=== PATIENT | male | born 1955 | race Caucasian/White ===

== ENCOUNTER → 2017-12-27 | Outpatient (CLI) | payer OTHER ==
[2017-12-27 14:07] LABS: INR 2.3 (<1.2); Partial Thromboplastin Time 28.6 sec (22.0-30.0); Prothrombin Time 20.5 sec (9.0-12.0)
[2017-12-27 14:19] LABS: ALT 24 U/L (21-72); AST 21 U/L (17-59); Albumin 3.7 g/dL (3.5-5.0); Alkaline Phosphatase 68 U/L (38-126); Anion Gap 9 mmol/L; Blood Urea Nitrogen 17 mg/dL (9-20); Calcium 9.4 mg/dL (8.4-10.2); Carbon Dioxide 29 mmol/L (22-30); Chloride 102 mmol/L (98-107); Glucose 99 mg/dL (74-99); Potassium 4.9 mmol/L (3.5-5.1); Sodium 140 mmol/L (137-145); Total Protein 6.5 g/dL (6.3-8.2)
[2017-12-27 14:26] LABS: Anisocytosis Slight; HCT 43.8 % (39.0-53.0); MCV 81.2 fL (80.0-100.0); Mean Platelet Volume 9.1; Microcytosis Slight; Platelet Count 192 k/uL (150-450); RBC 5.39 m/uL (4.30-5.90); RDW 19.2 % (11.5-15.5); WBC 6.4 k/uL (3.8-10.6)
[2017-12-27 14:29] LABS: Appearance,Urine Clear (Clear); Bilirubin,Urine Negative (Negative); Blood,Urine Negative (Negative); Color,Urine Yellow; Glucose,Urine (UA) Negative (Negative); Ketones,Urine Negative (Negative); Leukocyte Esterase,Urine Negative (Negative); Nitrite,Urine Negative (Negative); Protein,Urine Trace (Negative); Specific Gravity,Urine 1.014 (1.001-1.035); Urobilinogen,Urine <2.0 mg/dL (<2.0)
== END | disposition home or self-care (01) ==
LOC: LABPAT 13:00
PROVIDERS: ATTEND Orthopaedic Surgery Sports Medicine
DX: Z01.812 Encounter for preprocedural laboratory examination (principal)
CPT/HCPCS: 80053; 81003; 85027; 85610; 85730; 87070

== ENCOUNTER → 2018-01-19 | Outpatient (CLI) | payer OTHER ==
[2018-01-19 14:11] LABS: Anisocytosis Slight; HCT 43.2 % (39.0-53.0); HGB 14.3 gm/dL (13.0-17.5); MCH 27.2 pg (25.0-35.0); MCHC 33.2 g/dL (31.0-37.0); MCV 82.1 fL (80.0-100.0); Mean Platelet Volume 9.3; Microcytosis Slight; Platelet Count 158 k/uL (150-450); RBC 5.26 m/uL (4.30-5.90); RDW 17.5 % (11.5-15.5); WBC 6.7 k/uL (3.8-10.6)
[2018-01-19 14:16] LABS: ALT 17 U/L (21-72); AST 23 U/L (17-59); Albumin 3.9 g/dL (3.5-5.0); Alkaline Phosphatase 65 U/L (38-126); Anion Gap 12 mmol/L; Blood Urea Nitrogen 17 mg/dL (9-20); Calcium 9.3 mg/dL (8.4-10.2); Carbon Dioxide 24 mmol/L (22-30); Chloride 108 mmol/L (98-107); Glucose 98 mg/dL (74-99); INR 1.7 (<1.2); Partial Thromboplastin Time 25.8 sec (22.0-30.0); Potassium 4.4 mmol/L (3.5-5.1); Prothrombin Time 15.9 sec (9.0-12.0); Sodium 144 mmol/L (137-145); Total Bilirubin 0.6 mg/dL (0.2-1.3); Total Protein 6.5 g/dL (6.3-8.2)
[2018-01-19 14:20] LABS: Appearance,Urine Cloudy (Clear); Bilirubin,Urine 1+ (Negative); Blood,Urine Negative (Negative); Color,Urine Dark Yellow; Glucose,Urine (UA) Negative (Negative); Ketones,Urine Trace (Negative); Leukocyte Esterase,Urine Negative (Negative); Mucus,Urine Many /hpf; Nitrite,Urine Negative (Negative); Protein,Urine 1+ (Negative); Specific Gravity,Urine 1.027 (1.001-1.035); Squamous Epithelial Cell,Urine 11 /hpf (0-4); WBC,Urine 3 /hpf (0-5)
== END | disposition home or self-care (01) ==
LOC: LABPAT 13:28
PROVIDERS: ATTEND Orthopaedic Surgery Sports Medicine
DX: Z01.812 Encounter for preprocedural laboratory examination (principal); M17.12 Unilateral primary osteoarthritis, left knee
CPT/HCPCS: 80053; 81001; 85027; 85610; 85730

== ENCOUNTER 2018-02-03 12:33 | Inpatient (IN) | payer OTHER ==
[2018-01-25 14:47] VITALS: BMI 46.2
[~2018-02-03 12:33] MED LIST: ACETAMINOPHEN TAB 500 MG TAB PO ONE; DEXAMETHASONE SOD PHOSPHATE 10 MG/ML 1 ML VIAL IV ONE; LIDOCAINE 1% 20 ML VIAL (10MG/ML) FOR IV START INTRADERMA PRN; MELOXICAM 7.5 MG TAB PO ONE; MIDAZOLAM 2 MG/2 ML VIAL IV PRN; MORPHINE SULFATE 4 MG/ML SYRINGE IV PRN; ONDANSETRON 4 MG/2 ML VIAL IVP ONE; ROPIVACAINE 246.25 MG, EPINEPHrine 0.5 MG, KETOROLAC 30 MG, cloNIDine HCL/PF 80 MCG, WA... MISCELLANE ONE; TRANEXAMIC ACID 1,000 MG in SODIUM CHLORIDE 0.9% 50 ML IVPB ONE
[2018-02-03] MEDS: LACTATED RINGERS 1,000 ML IV SCH ×3 (13:42→23:49)
[2018-02-03 14:22] LABS: INR 1.2 (<1.2); Prothrombin Time 11.3 sec (9.0-12.0)
[2018-02-03] MEDS ORDERED: PROPOFOL 10 MG/ML 20 ML VIAL IV ONE (15:01)
[2018-02-03] MEDS ORDERED: SODIUM CHLORIDE 0.9% 100 ML BAG ONE (15:01)
[2018-02-03] MEDS ORDERED: PHENYLEPHRINE-0.9% NACL SYG 1 MG/10 ML SYRINGE ONE (15:01)
[2018-02-03] MEDS ORDERED: TRANEXAMIC ACID 1,000 MG/10 ML VIAL ONE (15:01)
[2018-02-03] MEDS ORDERED: fentaNYL (PF) 50 MCG/ML 2 ML AMP ONE (15:01)
[2018-02-03] MEDS ORDERED: MIDAZOLAM 2 MG/2 ML VIAL ONE (15:01)
[2018-02-03] MEDS ORDERED: LIDOCAINE 1% INJ 10MG/ML (20 ML MDV) ONE (15:01)
[2018-02-03] MEDS ORDERED: traMADol 50 MG TAB PO PRN (15:16)
[2018-02-03] MEDS ORDERED: ACETAMINOPHEN TAB 325 MG TAB PO PRN (15:16)
[2018-02-03] MEDS ORDERED: ONDANSETRON 4 MG/2 ML VIAL IVP PRN (15:16)
[2018-02-03] MEDS ORDERED: NALOXONE 0.4 MG/ML 1 ML VIAL IV PRN (15:16)
[2018-02-03] MEDS ORDERED: HYDROcodone/APAP 7.5-325MG 1 EACH TAB PO PRN ×2 (15:16)
[2018-02-03] MEDS ORDERED: MAGNESIUM HYDROXIDE 2,400 MG/10 ML CUP PO PRN (15:16)
[2018-02-03] MEDS ORDERED: BISACODYL 10 MG SUPP RECTAL PRN (15:16)
[2018-02-03] MEDS ORDERED: HYDROmorphone 0.5 MG/0.5 ML SYRINGE IVP PRN ×3 (15:16)
[2018-02-03] MEDS ORDERED: DIAZEPAM 5 MG TAB PO PRN (15:16)
[2018-02-03] MEDS ORDERED: NA PHOS,M-B/NA PHOS,DI-BA 133 ML ENEMA RECTAL PRN (15:16)
[2018-02-03] MEDS ORDERED: TEMAZEPAM 15 MG CAP PO PRN (15:16)
[2018-02-03] MEDS ORDERED: hydrOXYzine PAMOATE 25 MG CAP PO PRN (15:16)
[2018-02-03] MEDS ORDERED: ceFAZolin 3,000 MG in SODIUM CHLORIDE 0.9% IRRIGATIO 3,000 ML IRRIGATION ONE (15:52)
[2018-02-03] MEDS ORDERED: LACTATED RINGERS 1,000 ML IV ONE (16:01)
--- NOTE | 2018-02-03 17:45 | XR ---
PROCEDURE: XR knee limited LT, 2 views DATE AND TIME: 02/03/2018 5:38 PM REFERRING PHYSICIAN: Julio Gilmore CLINICAL INDICATION: PHH, Evaluation for Postop abnormality and alignment TECHNIQUE: Department protocol. COMPARISON: None FINDINGS: The TKR appears in anatomic positioning and alignment. Postprocedural changes are noted. No unexpected findings. IMPRESSION: Postoperative 2 views.
[2018-02-03] MEDS ORDERED: WARFARIN 10 MG TAB PO ONE (18:00)
[2018-02-03] MEDS ORDERED: SENNOSIDES-DOCUSATE SODIUM 1 EACH TAB PO SCH (21:00)
[2018-02-03] MEDS ORDERED: WARFARIN 7.5 MG TAB PO SCH (22:15)
--- NOTE | 2018-02-03 22:33 | OP ---
OPERATIVE REPORT DATE OF PROCEDURE: 02/03/2018 SURGEON: Georgi Tamayo MD. BOOSTER PLANT OPERATOR: Julio LOCKE. PREOPERATIVE DIAGNOSIS: Left knee osteoarthrosis. POSTOPERATIVE DIAGNOSIS: Left knee osteoarthrosis. OPERATION: Left total knee arthroplasty. ANESTHESIA: Spinal with sedation. ESTIMATED BLOOD LOSS: 100 mL. TOURNIQUET TIME: 55 minutes @ 250 mmHg. COMPLICATIONS: None apparent. DRAINS: None. DISPOSITION: Postanesthesia Care Unit. INDICATIONS: Mr. Danielle is a very pleasant 62-year-old male with longstanding history of left knee pain. History and physical examination are consistent with advanced left knee osteoarthrosis. He has been through significant non-operative management up to this point. Further treatment options were discussed and he has decided to go forward with left total knee arthroplasty. The risks of the procedure were discussed with him in detail. These risks include but are not limited to risk of infection, nerve damage, bleeding, pain and a risk of deep vein thrombosis which could lead to fatal pulmonary embolism. There is also a risk of loosening of the implant which could require revision operation. The patient understands these risks. All of his questions were answered to his satisfaction. Appropriate informed consent was obtained. DESCRIPTION OF PROCEDURE: The patient was identified in the preoperative holding area. Surgical site was marked by both the patient and myself. He was given 3 grams of Ancef IV for prophylactic purposes. He was then transferred to the operative suite. He was placed supine on the operative table. A spinal anesthetic was then administered and dosed per the anesthesia department without apparent complications. Examination under anesthesia was then performed. The patient was 5 degrees shy of full extension. He had 95 degrees of flexion. The medial collateral ligament, lateral collateral ligament and posterior cruciate ligaments were stable. Tourniquet was then placed high on the left upper thigh, well padded in preparation for surgery. The patient's left lower extremity was then prepped and draped in the usual sterile fashion. A standard surgical pause was then undertaken to ensure that we were operating on the correct site and that appropriate preoperative antibiotics had been given. All staff in the room in agreement and we proceeded. The outlines of the patella were then marked with a surgical pen. A planned 12 cm vertical incision centered over the patella was marked with a surgical pen. Leg was then exsanguinated with an Esmarch dressing. The knee was then flexed and the tourniquet was inflated to 250 mmHg. The total tourniquet time for the procedure was 55 minutes. Incision was then made with a 10 blade scalpel. Dissection was carried down sharply to the overlying fascia. Great care was taken to minimize the skin flaps. The knee was then exposed using a standard medial parapatellar approach. A small cuff of quadriceps tendon was left for suturing. He was in a bit of varus preoperatively. A standard medial release was then made. Superficial medial collateral ligament was dissected off the bone around to the posterior aspect of the proximal tibia. The medial meniscus was then excised as well. The lateral meniscus was also released anteriorly. The leg was then externally rotated. The patella was everted. The knee was flexed. The retractors were then placed to protect the collateral ligaments. I then proceeded to remove the infrapatellar fat pad. This was excised sharply tangentially with the fibers of the patellar tendon. I then proceeded to remove the peripheral osteophytes. This was done with a rongeur. I then proceeded with the distal femoral resection. He did have a flexion contracture. A planned 11 mm resection was then done. The femoral canal was then entered in the midline of the femur approximately 10 mm anterior to the origin of the posterior cruciate ligament. The lily was then advanced down the center of the femur and placed intramedullary. Based on preoperative radiographs, the angle between the anatomic and mechanical axis of the femur was approximately 4-5 degrees. The valgus-angled distal femoral cutting guide was then set at 4 degrees for the left knee. The distal femoral cutting guide was then advanced over the intramedullary lily. This was seated firmly against the femur. I then, as mentioned, planned to take 11 mm off the distal femur. The cutting block was then secured onto the femur with pins. The jig was removed and the distal femoral cut was made through the slot of the block. The pins were then removed. The distal femoral cutting block was removed. The accuracy of the distal femoral cuts was checked with 2 flat bars. I then proceeded with femoral sizing. Posterior referencing sizing guide was held firmly against the resected distal surface of the femur. The posterior condyles were resting on the posterior plane of the guide. Sizing stylus was then placed onto the anterior femur. The size was measured to a size 12. I then assessed for femoral rotation. Plan was for 3 degrees of external rotation. Three degrees of external rotation was placed onto the jig. These holes were then marked. I then confirmed the rotation by 3 separate methods. This was done using the epicondylar axis as well as Whitesides line and posterior referencing. It was deemed that the external rotation was proper. I then went forward with placing the femoral cutting block. This was placed over the previously placed pin holes. The kinga wing was then placed onto the anterior slots to ensure that we would not notch the anterior femur with the anterior femoral cut. I then proceed with the anterior femoral cut. This was flush with the anterior cortex of the femur. The posterior cuts were then made followed by the anterior chamfer cut, then the posterior chamfer cut. The cutting block was then removed. Throughout the resection, the collateral ligaments were protected with retractors. I then placed a trial size 12 femur. It fit very nice medial to lateral and fit flush with the distal end of the femur. The drill holes were then made. I then proceeded with the tibial cut. I planned for a cruciate-retaining knee. The guide was placed and set for varus and valgus and then for slope. The height was set for an approximate 2 mm resection from the medial tibial plateau, which was the lower side. I was happy with the alignment and the amount of resection. The cutting block was then pinned to the proximal tibia. The alignment lily was removed and the proximal tibia was resected with a reciprocating saw. Again this was done with retractors protecting the collateral ligaments as well as the posterior cruciate ligament. I then proceeded to evaluate the flexion and extension gaps. A 10 mm block was placed. The flexion and extension gaps were equal. I then proceeded with resection of the very extensive posterior osteophytes. This was done using a curved osteotome. This resected the posterior osteophytes, and posterior capsule stripping was also done off the posterior aspect of the femur at this time. The osteophytes were removed. I then proceeded with resection of the patella. The thickness of the patella was measured using a caliper. The thickness was 25 mm. Next the anticipated patellar dome was taken into account. Resection was then performed and confirmed to be equal in 4 quadrants using a caliper. Approximately 14 mm of bone remained after the resection. A 35 x 9 mm standard patellar trial was then placed. The holes were drilled and the trial was then placed. I then proceeded with sizing the tibial plate. A size H tibial plate fit very nicely. I then placed the trial femur, tibial tray and the patellar button. A 10 mm trial tibial insert was placed. The components fit very nicely. He had full flexion and extension. The extension and flexion gaps were equal and stable to both varus and valgus stress. The patella tracked appropriately. The tibial tray rotation was marked with a Bovie. This was externally rotated properly. I then proceeded with tibial preparation. I first drilled the femoral holes and removed the femoral component. The tibial tray was then set for proper external rotation as well as mediolateral placement onto the tibia. It was then pinned into place. I then proceeded with punching the keel. I then decided to proceed with cementing of all of our components. The knee was thoroughly irrigated with sterile saline solution via pulse lavage. The lateral geniculate artery was identified and cauterized. All blood was removed from the bone of the tibia, femur and patella with pulse lavage. I then proceeded with cementing. Two packs of antibiotic bone cement were prepared on the back table by the surgical garment inspector. I then proceeded with cementing of the tibia first. Cement was impacted into the keel as well as deeply seated into the bone. A second coat of cement was then placed. The tibia was then impacted into place. Excess cement was removed with [place]'s and Joker's. I then proceeded with cementing of the femoral component. The femoral component was also cemented using standard technique. Excess cement was removed. A 10 mm trial insert was then placed into the knee. It was brought into full extension with a constant axial load placed until the cement had hardened. The patellar component was then cemented. This was held firmly with a compressive device until the cement had dried. When the cement had dried, the knee was taken out of extension. All excess cement was removed from around the prosthesis. I then trialed the knee with a 10 mm insert. Flexion and extension gaps were appropriate. I then trialed with a 12 mm insert. The flexion and extension gaps felt much better. The knee was stable with a 12 mm insert. It came into full extension. I decided to go forward with a 12 mm cross-linked cruciate-retaining tibial insert. Polyethylene was then placed onto the tibial tray and locked into place. The knee was reduced. The knee was again further irrigated with sterile saline solution with antibiotic added. The tourniquet was then deflated. Total tourniquet time for the procedure was 55 minutes at 250 mmHg. Final components were Olga Persona size 12 cruciate-retaining femoral component, a size H tibial tray, a 12 mm medial congruent cruciate-retaining polyethylene insert and a 35 x 9 mm patella. I then proceeded with closure. Again the knee was thoroughly irrigated. This was done with antibiotic solution. The quadriceps tendon and the medial retinaculum were reapproximated with #2 Ethibond suture. The extensor mechanism was then closed with a running #2 Quill suture. Subcutaneous tissues were then closed with 2-0 Vicryl interrupted suture. The skin was closed with a running 3-0 Quill suture. Dermabond was applied to the incision. Sterile compressive dressing was then applied. All sponge and needle counts were deemed correct prior to closure. The patient tolerated the procedure without apparent complication. He was transferred to the recovery room in stable condition. MMODL / IJN: [id number] /
[2018-02-03] MEDS: NICOTINE 14MG/24HR PATCH TRANSDERM SCH (23:50)
[2018-02-04] MEDS ORDERED: SODIUM CHLORIDE 0.9% 500 ML IV ONE (02:32)
[2018-02-04] MEDS: LACTATED RINGERS 1,000 ML IV SCH ×3 (02:47)
--- NOTE | 2018-02-04 07:15 | CONS ---
CONSULTATION DATE OF CONSULTATION: 02/03/2018 REASON FOR CONSULTATION: Medical management requested by Dr. Tamayo. CONSULTATION: This is a very pleasant 62-year-old patient of Dr. Millard who has undergone a left total knee arthroplasty. Did tolerate a clear liquid diet tonight. No nausea or vomiting. No chest pain. Chronic stable medical conditions include atrial fibrillation, hypertension, osteoarthritis, and has a permanent pacemaker. The patient smokes about half a pack a day. Does have obstructive sleep apnea, but does not use CPAP machine. Pain is well controlled. REVIEW OF SYSTEMS: CONSTITUTIONAL: None. HEENT: Snoring. RESPIRATORY: Occasionally short of breath. CARDIOVASCULAR: No chest pain. GASTROINTESTINAL: None. GENITOURINARY: None. MUSCULOSKELETAL: Arthritic pain in different joints. DERMATOLOGICAL: None. HEMATOLOGIC: None. LYMPHATICS: None. PSYCHIATRY: None. NEUROLOGICAL: None. PAST HISTORY: Past history of atrial fibrillation, hypertension, osteoarthritis, obstructive sleep apnea. PAST SURGICAL HISTORY: Appendectomy, bariatric surgery, pacemaker, cardioversion, bilateral foot surgery for heel spurs. SOCIAL HISTORY: The patient lives alone. Been smoking half a pack a day for 10 years. Alcohol occasionally. FAMILY HISTORY: Myocardial infarction, arthritis. HOME MEDICATIONS: 1. Coumadin 7.5 every day except for 10 mg on Mondays. 2. Aldactone 50 mg a day. 3. Men's multivitamin 1 tablet p.o. daily. 4. Toprol XL 200 mg a day. 5. Slow-Mag 64 mg a day. 6. Lisinopril 10 mg a day. 7. Lasix 40 mg a day. 8. Iron 325 mg a day. 9. Tylenol Extra Strength. ALLERGY: Allergy to IODINE, SHELLFISH, SHRIMP. PHYSICAL EXAMINATION: On examination, afebrile, pulse 60, respiration 16, blood pressure 100/59, pulse ox 95% on room air. GENERAL APPEARANCE: Well built, BMI 46.3. Lying in bed, comfortable. EYES: Pupils equal. Conjunctivae normal. HENT: External appearance of nose and ears normal. Oral cavity normal. NECK: Short, thick, JVD unable to assess. Mass not palpable. RESPIRATORY: Effort increased. LUNGS: Distant breath sounds. HEART: Heart sounds muffled. No edema. ABDOMEN: Distended, soft. Liver and spleen not palpable. LYMPHATIC: No lymph node palpable in the neck and axillae. PSYCHIATRY: Alert and oriented x3. Mood and affect normal. NEUROLOGICAL: Pupils equal. Cranial nerves grossly intact. Power and sensation grossly intact. EXTREMITIES: Left knee in a dressing. INVESTIGATIONS: Blood work from 01/19/2018 shows white count 6.7, hemoglobin 14.3. Potassium 4.4. BUN and creatinine normal. The patient's INR today is 1.2. ASSESSMENT: 1. Left total knee arthroplasty. 2. Primary osteoarthritis. 3. Obstructive sleep apnea, does not use CPAP machine. 4. Essential hypertension. 5. Paroxysmal atrial fibrillation, currently in sinus rhythm. 6. Chronic nicotine dependence, patient is a cigarette smoker. 7. Permanent pacemaker in place. 8. Morbid obesity, body mass index of 46. PLAN: Patient's home medications are to be resumed. Patient can resume his home dose of Coumadin starting tonight. INR to be followed. The patient will be given a nicotine patch. Smoking cessation counseling was done with the patient told the importance of stopping smoking including his sleep apnea and developing other medical problems. The patient will be given a nicotine patch. More than 3 minutes were spent on this aspect of the case. Thank you, Dr. Tamayo. The patient should follow up with Dr. Reid upon discharge. MMODL / IJN: [id number] /
[2018-02-04 07:49] VITALS: TEMP 98.2
[2018-02-04 07:55] LABS: Anisocytosis Slight; Basophils % (A) 0 %; Eosinophils % (A) 0 %; HCT 38.7 % (39.0-53.0); HGB 12.5 gm/dL (13.0-17.5); Lymphocytes # (A) 0.9 k/uL (1.0-4.8); Lymphocytes % (A) 8 %; MCHC 32.2 g/dL (31.0-37.0); MCV 86.8 fL (80.0-100.0); Mean Platelet Volume 9.4; Monocytes # (A) 1.1 k/uL (0-1.0); Monocytes % (A) 9 %; Neutrophils % (A) 82 %; Platelet Count 165 k/uL (150-450); RBC 4.46 m/uL (4.30-5.90); RDW 16.6 % (11.5-15.5); WBC 12.2 k/uL (3.8-10.6)
--- NOTE | 2018-02-04 07:58 | P.PN ---
Progress Note - Text Date:02/04 Time:657am Patient is status post tkr. Patient seen this morning with VAS score of 0.no c/ o of pruritus, no c/o nausea/vomiting, comfortable and doing well.
[2018-02-04 08:01] LABS: INR 1.2 (<1.2); Prothrombin Time 11.9 sec (9.0-12.0)
[2018-02-04] MEDS: NICOTINE 14MG/24HR PATCH TRANSDERM SCH (08:01)
[2018-02-04] MEDS ORDERED: LISINOPRIL 10 MG TAB PO SCH (09:00)
[2018-02-04] MEDS ORDERED: METOPROLOL SUCCINATE (ER) 100 MG TAB.ER.24H PO SCH (09:00)
[2018-02-04] MEDS ORDERED: NON-FORMULARY DRUG (Multivitamin [Men's Multi-Vitamin] 1 TAB) PO SCH (09:00)
[2018-02-04] MEDS ORDERED: MAGNESIUM OXIDE 400 MG TAB PO SCH (09:00)
[2018-02-04] MEDS ORDERED: FERROUS SULFATE 325 MG TAB PO SCH (09:00)
[2018-02-04] MEDS ORDERED: SPIRONOLACTONE 25 MG TAB PO SCH (09:00)
[2018-02-04] MEDS ORDERED: HYDROmorphone 2 MG TAB PO PRN ×2 (10:36)
[2018-02-04] MEDS ORDERED: HYDROmorphone 4 MG TABLET PO PRN (10:37)
[2018-02-04] MEDS ORDERED: MULTIVITAMINS, THERA 1 EACH TAB PO SCH (12:00)
--- NOTE | 2018-02-04 12:55 | P.DS ---
Providers Date of admission: 02/03/18 12:33 Expected date of discharge: 02/04/18 Attending physician: Georgi Tamayo Consults: 02/03/18 15:16 Consult Physician Routine Consulting Provider: Pablo Reid Consult Reason/Comments: post op medical management Do you want consulting provider notified?: Yes 02/03/18 18:14 Consult Physician Routine Consulting Provider: Duglas Barajas Consult Reason/Comments: post op medical management Do you want consulting provider notified?: Yes Primary care physician: Pablo Franklin - Discharge Diagnosis(es) (1) Osteoarthritis of left knee Patient was admitted to the OR on 02/03/2018 to undergo Left Total knee arthroplasty. He had failed conservative measures as an outpatient and desired to proceed with elective surgery after given informed consent. He underwent the above procedure which he tolerated well without complication. Postoperative hospital course has remained without complication. On day of discharge he is afebrile, vital signs stable, labs within acceptable ranges, tolerating by mouth meds and diet, voiding without difficulty, positive flatus, denies abdominal pain or calf pain, pain is controlled on oral pain medication and has no new complaints. Wound is benign, neurovascular status is intact, calf is soft and nontender, abdomen soft and nontender. Review of systems is negative for numbness, tingling, fever, chills, chest pain, shortness breath, nausea, vomiting, dizziness, headaches, slurred speech or other. Current Visit: Yes Status: Acute Priority: Medium Procedures: Left TKA Patient Condition at Discharge: Good Plan - Discharge Summary Discharge Rx Participant: Yes New Discharge Prescriptions: New Docusate [Colace] 100 mg PO BID #60 capsule HYDROcodone/APAP 7.5-325MG [[place] 7.5-325] 1 - 2 each PO Q6HR PRN #90 tab PRN Reason: Pain No Action Warfarin [Coumadin] 7.5 mg PO SUTUWETHFRSA Warfarin [Coumadin] 10 mg PO MO Multivitamin [Men's Multi-Vitamin] 1 tab PO DAILY Lisinopril 10 mg PO QAM Furosemide 40 mg PO QAM Metoprolol Succinate [Toprol XL] 200 mg PO QAM Spironolactone 50 mg PO QAM Magnesium Chloride [Slow-Mag] 64 mg PO QAM Ferrous Sulfate [Feosol] 325 mg PO DAILY Acetaminophen [Tylenol Extra Strength] 500 mg PO DAILY PRN PRN Reason: Pain Discharge Medication List Furosemide 40 mg PO QAM 05/13/15 [History] Lisinopril 10 mg PO QAM 05/13/15 [History] Multivitamin [Men's Multi-Vitamin] 1 tab PO DAILY 05/13/15 [History] Warfarin [Coumadin] 7.5 mg PO SUTUWETHFRSA 05/13/15 [History] Warfarin [Coumadin] 10 mg PO MO 05/13/15 [History] Metoprolol Succinate [Toprol XL] 200 mg PO QAM 12/20/15 [History] Acetaminophen [Tylenol Extra Strength] 500 mg PO DAILY PRN 01/05/18 [History] Ferrous Sulfate [Feosol] 325 mg PO DAILY 01/05/18 [History] Magnesium Chloride [Slow-Mag] 64 mg PO QAM 01/05/18 [History] Spironolactone 50 mg PO QAM 01/05/18 [History] Docusate [Colace] 100 mg PO BID #60 capsule 02/04/18 [Rx] HYDROcodone/APAP 7.5-325MG [[place] 7.5-325] 1 - 2 each PO Q6HR PRN #90 tab [Rx] Follow up Appointment(s)/Referral(s): Pablo Reid MD [Primary Care Provider] - 02/10/18 10:30 am (with Ada Woody [facility], [NON-STAFF] - Georgi Tamayo MD [STAFF PHYSICIAN] - 02/18/18 1:00 pm Ambulatory/Diagnostic Orders: Prothrombin Time INR [LAB.AMB] Location: Determined By Patient Activity/Diet/Wound Care/Special Instructions: Keep wound clean and dry Take meds as directed Follow-up with Dr. Tamayo in office Weight bear as tolerated Daily dressing changes with sanju wrap. May shower in 3 days if no bleeding Discharge Disposition: HOME WITH HOME HEALTH SERVICES
[2018-02-04 15:40] VITALS: BP 104/60; PULSE 70; RESP 15
[2018-02-04] MEDS ORDERED: WARFARIN 10 MG TAB PO ONE (18:00)
[2018-02-07] MEDS ORDERED: WARFARIN 10 MG TAB PO SCH (18:00)
== END 2018-02-04 16:20 | disposition home health service (06) | DRG 470 ==
LOC: 2ORMAIN 12:33 → 3SUR 17:18
PROVIDERS: ADMIT Orthopaedic Surgery Sports Medicine; ATTEND Orthopaedic Surgery Sports Medicine
PROC: 0SRD0J9 Replacement of Left Knee Joint with Synthetic Substitute, Cemented, Open Approach (ICD-10-PCS; principal; 2018-02-03 15:00)
DX: M17.0 Bilateral primary osteoarthritis of knee (principal); Z68.42 Body mass index [BMI] 45.0-49.9, adult; I48.0 Paroxysmal atrial fibrillation; E66.01 Morbid (severe) obesity due to excess calories; G47.33 Obstructive sleep apnea (adult) (pediatric); I10 Essential (primary) hypertension; F17.210 Nicotine dependence, cigarettes, uncomplicated; Z88.3 Allergy status to other anti-infective agents; Z91.013 Allergy to seafood; Z95.0 Presence of cardiac pacemaker; Z98.84 Bariatric surgery status; Z90.49 Acquired absence of other specified parts of digestive tract; Z82.49 Family history of ischemic heart disease and other diseases of the circulatory system; Z82.61 Family history of arthritis; Z71.6 Tobacco abuse counseling; Z79.899 Other long term (current) drug therapy; Z79.01 Long term (current) use of anticoagulants
CPT/HCPCS: 85025; 85610; 88300

== ENCOUNTER → 2018-06-23 | Outpatient (CLI) | payer OTHER ==
[2018-06-23 15:12] LABS: HCT 47.2 % (39.0-53.0); HGB 15.7 gm/dL (13.0-17.5); MCHC 33.3 g/dL (31.0-37.0); Mean Platelet Volume 8.7; Platelet Count 132 k/uL (150-450); RBC 5.42 m/uL (4.30-5.90); RDW 13.7 % (11.5-15.5); WBC 6.2 k/uL (3.8-10.6)
[2018-06-23 15:14] LABS: Appearance,Urine Clear (Clear); Bilirubin,Urine Negative (Negative); Blood,Urine Negative (Negative); Color,Urine Yellow; Glucose,Urine (UA) Negative (Negative); Ketones,Urine Negative (Negative); Leukocyte Esterase,Urine Negative (Negative); Nitrite,Urine Negative (Negative); Protein,Urine Negative (Negative); Urobilinogen,Urine <2.0 mg/dL (<2.0)
[2018-06-23 15:19] LABS: INR 2.8 (<1.2)
[2018-06-23 15:25] LABS: ALT 22 U/L (21-72); AST 25 U/L (17-59); Albumin 3.8 g/dL (3.5-5.0); Alkaline Phosphatase 71 U/L (38-126); Anion Gap 6 mmol/L; Blood Urea Nitrogen 20 mg/dL (9-20); Calcium 9.3 mg/dL (8.4-10.2); Carbon Dioxide 27 mmol/L (22-30); Chloride 108 mmol/L (98-107); Glucose 99 mg/dL (74-99); Potassium 4.8 mmol/L (3.5-5.1); Sodium 141 mmol/L (137-145); Total Bilirubin 0.7 mg/dL (0.2-1.3); Total Protein 6.9 g/dL (6.3-8.2)
== END | disposition home or self-care (01) ==
LOC: LABPAT 14:08
PROVIDERS: ATTEND Orthopaedic Surgery Sports Medicine
DX: Z01.812 Encounter for preprocedural laboratory examination (principal); Z79.01 Long term (current) use of anticoagulants
CPT/HCPCS: 36415; 80053; 81003; 85027; 85610; 85730; 87070

== ENCOUNTER 2018-07-14 11:31 | Day surgery (SDC) | payer OTHER ==
[2018-07-05 11:36] VITALS: BMI 45.0
[~2018-07-14 11:31] MED LIST changes: -MORPHINE SULFATE 4 MG/ML SYRINGE IV PRN; +fentaNYL (PF) 50 MCG/ML 2 ML AMP IV PRN
[2018-07-14] MEDS ORDERED: LACTATED RINGERS 1,000 ML IV ONE ×2 (11:45→14:39)
[2018-07-14 12:25] LABS: INR 1.1 (<1.2); Partial Thromboplastin Time 23.2 sec (22.0-30.0); Prothrombin Time 10.4 sec (9.0-12.0)
[2018-07-14] MEDS ORDERED: MORPHINE SULFATE (PF) 0.3 MG/0.3 ML SYR ONE (14:00)
[2018-07-14] MEDS ORDERED: SODIUM CHLORIDE 0.9% 100 ML BAG ONE (14:00)
[2018-07-14] MEDS ORDERED: ePHEDrine SULFATE/0.9% NACL/PF 50 MG/5 ML SYRINGE IV ONE (14:00)
[2018-07-14] MEDS ORDERED: fentaNYL (PF) 50 MCG/ML 2 ML AMP ONE (14:00)
[2018-07-14] MEDS ORDERED: TRANEXAMIC ACID 1,000 MG/10 ML VIAL ONE (14:00)
[2018-07-14] MEDS ORDERED: ceFAZolin 3,000 MG in SODIUM CHLORIDE 0.9% IRRIGATIO 3,000 ML IRRIGATION ONE (14:32)
[2018-07-14] MEDS ORDERED: ONDANSETRON 4 MG/2 ML VIAL IVP PRN (16:08)
[2018-07-14] MEDS ORDERED: NALOXONE 0.4 MG/ML 1 ML VIAL IV PRN (16:08)
[2018-07-14] MEDS ORDERED: MORPHINE SULFATE 4 MG/ML SYRINGE IVP PRN (16:08)
[2018-07-14] MEDS ORDERED: diphenhydrAMINE 50 MG/ML 1 ML VIAL IVP PRN (16:08)
[2018-07-14] MEDS ORDERED: HYDROcodone/APAP 7.5-325MG 1 EACH TAB PO PRN (16:09)
[2018-07-14] MEDS ORDERED: BISACODYL 10 MG SUPP RECTAL PRN (16:09)
[2018-07-14] MEDS ORDERED: MAGNESIUM HYDROXIDE 2,400 MG/10 ML CUP PO PRN (16:09)
[2018-07-14] MEDS ORDERED: DIAZEPAM 5 MG TAB PO PRN (16:09)
[2018-07-14] MEDS ORDERED: HYDROcodone/APAP 5-325MG 1 EACH TAB PO PRN ×2 (16:09)
[2018-07-14] MEDS ORDERED: TEMAZEPAM 15 MG CAP PO PRN (16:09)
[2018-07-14] MEDS ORDERED: NA PHOS,M-B/NA PHOS,DI-BA 133 ML ENEMA RECTAL PRN (16:09)
[2018-07-14] MEDS ORDERED: HYDROcodone/APAP 10-325MG 1 EACH TAB PO PRN (16:09)
[2018-07-14] MEDS ORDERED: traMADol 50 MG TAB PO PRN (16:09)
[2018-07-14] MEDS ORDERED: HYDROmorphone 1 MG/ML 1 ML SYRINGE IVP PRN ×3 (16:09)
[2018-07-14] MEDS ORDERED: hydrOXYzine PAMOATE 25 MG CAP PO PRN (16:09)
[2018-07-14] MEDS ORDERED: ACETAMINOPHEN TAB 325 MG TAB PO PRN (16:09)
--- NOTE | 2018-07-14 16:46 | XR ---
EXAMINATION TYPE: XR knee limited RT DATE OF EXAM: 07/14/2018 COMPARISON: NONE HISTORY: Knee replacement TECHNIQUE: 2 views FINDINGS: There is a right knee prosthesis. Components are in anatomic position. IMPRESSION: No complicating process seen.
[2018-07-14] MEDS ORDERED: WARFARIN 10 MG TAB PO ONE (18:30)
[2018-07-14] MEDS: LACTATED RINGERS 1,000 ML IV SCH ×2 (19:57→19:58)
--- NOTE | 2018-07-14 20:03 | OP ---
OPERATIVE REPORT DATE OF PROCEDURE: 07/14/2018 SURGEON: Georgi Tamayo MD. STUDENT SUPPORT ADVISOR: Julio Gilmore PA-C PREOPERATIVE DIAGNOSIS: Right knee osteoarthrosis. POSTOPERATIVE DIAGNOSIS: Right knee osteoarthrosis. OPERATION: Right total knee arthroplasty. ANESTHESIA: Spinal with sedation. ESTIMATED BLOOD LOSS: 100 mL. TOURNIQUET TIME: 51 minutes at 250 mmHg. COMPLICATIONS: None apparent. DRAINS: None. DISPOSITION: Post-Anesthesia Care Unit. INDICATIONS: Lane is a very pleasant 63-year-old male with longstanding right knee pain. History and physical examination are consistent with advanced right knee osteoarthrosis. He has been through significant nonoperative management up to this point. Further treatment options were discussed and he decided to go forward with right total knee arthroplasty. The risks of the procedure were discussed with him in detail. These risks included but were not limited to risk of infection, nerve damage, bleeding, pain, and a small risk of deep vein thrombosis which could lead to fatal pulmonary embolism. There is also a risk of loosening of the implant which could require revision operation. The patient understands these risks. All of his questions were answered to his satisfaction. Appropriate informed consent was obtained. DESCRIPTION OF THE PROCEDURE: The patient was identified in the preoperative holding area. Surgical site was marked by both the patient and myself. He was given 3 grams of Ancef IV for prophylactic purposes. He was then transferred to the operative suite. He was placed supine on the operating room table. Spinal anesthetic was then administered and dosed per the anesthesia department without apparent complication. Examination under anesthesia was then performed. The patient was 2 to 3 degrees shy of full extension. He had 95 degrees of flexion in the medial collateral ligament; lateral collateral ligament and posterior cruciate ligaments were stable. Tourniquet was then placed high on the right upper thigh, well padded in preparation for surgery. The patient's right lower extremity was then prepped and draped in the usual sterile fashion. Standard surgical pause was then undertaken to ensure that we were operating on the correct site and that appropriate preoperative antibiotics had been given. All staff in the room were in agreement and we proceeded. The outlines of the patella were marked with a surgical pen. A planned 12 cm vertical incision centered over the patella was marked with a surgical pen. The leg was then exsanguinated with an Esmarch dressing. The knee was then flexed and the tourniquet was inflated to 250 mmHg. The total tourniquet time for the procedure was 51 minutes. Incision was then made with a 10 blade scalpel. Dissection was carried down sharply to the overlying fascia. Great care was taken to minimize the skin flaps. The knee was then exposed using a standard medial parapatellar approach. A small cuff of quadriceps tendon was then left for suturing. He was in a bit of varus preoperatively. A standard medial release was then made. Superficial medial collateral ligament was dissected off the bone around to the posterior aspect of the proximal tibia. The medial meniscus was then excised as well. The lateral meniscus was also released anteriorly. The leg was then externally rotated. The patella was everted and the knee was flexed. Retractors were then placed to protect the collateral ligaments. I then proceeded to remove the infrapatellar fat pad. This was excised sharply tangentially with the fibers of the patellar tendon. I then proceeded to remove peripheral osteophytes. This was done using a rongeur. I then proceeded with the distal femoral resection. He did have near-full extension. A planned 9 mm resection was then done. The femoral canal was then entered in the midline of the femur approximately 10 mm anterior to the origin of the posterior cruciate ligament. The lily was then advanced down the center of the femur and placed intramedullary. Based on the preoperative radiographs, the angle between the anatomic and mechanical axis of the femur was approximately 4 to 5 degrees. The valgus angle of the femoral cutting guide was then set at 4 degrees for the right knee. The distal femoral cutting guide was then advanced over the intramedullary lily. This was seated firmly against the femur. I then, as mentioned, planned to take 9 mm off the distal femur. The cutting block was then secured onto the femur with pins. The jig was removed. The distal femoral cut was made through the slot of the block. The pins were then removed. This distal femoral cutting block was removed. The accuracy of the distal femoral cut was checked with 2 flat bars. I then proceed with femoral sizing. The posterior referencing sizing guide was held firmly against the resected distal surface of the femur. The posterior condyles were resting on the posterior plane of the guide. The sizing stylus was then placed onto the anterior femur. The size was measured as a size 12. I then assessed for femoral rotation. The plan was for 3 degrees of external rotation. Three degrees of external rotation was placed onto the jig. These holes were then marked. I then confirmed the rotation by 3 separate methods. This was done using the epicondylar axis as well as was Whitesides line and posterior referencing. It was deemed that the external rotation was proper. I then went forward with placing the femoral cutting block. This was placed over the previously placed pin holes. The Silver wing was then placed onto the anterior slots to ensure that we would not notch the anterior femur with the anterior femoral cut. I then proceeded with the anterior femoral cut. This was flush with the anterior cortex of the femur. Posterior cuts were then made followed by the anterior chamfer cut and then the posterior chamfer cut. The cutting block was then removed. Throughout the resection, the collateral ligaments were protected with retractors. I then placed a trial size 12 femur. It fit very nice medial to lateral and fit flush with the distal end of the femur. The drill holes were then made. I then proceeded with the tibial cut. I planned for a cruciate-retaining knee. The guide was placed and set for varus, valgus and for slope. The height was set for an approximate 2 mm resection from the medial tibial plateau, which was the lower side. I was happy with the alignment and the amount of resection. The cutting block was then pinned to the proximal tibia. The alignment lily was removed. The proximal tibia was resected with a reciprocating saw. Again this was done with retractors protecting the collateral ligaments as well as the posterior cruciate ligament. I then proceeded to evaluate the flexion and extension gaps. A 10 mm block was placed. The flexion and extension gaps were equal. I then proceeded with resection of the very minimal posterior osteophytes. This was done using a curved osteotome. This resected the posterior osteophytes, and posterior capsule stripping was also done off the posterior aspect of the femur at this time. The osteophytes were removed. I then proceeded with resection of the patella. The thickness of the patella was measured using the caliper. The thickness was 22 mm. The thickness of the anticipated patellar dome was taken into account. The resection was then performed and confirmed to be equal in 4 quadrants using a caliper. Approximately 14 mm of bone remained after the resection. A 35 x 8.5 standard patellar trial was then placed. The holes were drilled. The trial was then placed. I then proceeded with sizing the tibial plate. A size H tibial plate fit very nicely. I then placed the trial femur, the tibial tray and the patellar button. A 10 mm trial tibial insert was also placed. The components fit very nicely. He had full extension and flexion. The extension and flexion gaps were equal and stable to both varus and valgus stress. The patella tracked appropriately. The tibial tray rotation was marked with a Bovie. This was externally rotated properly. I then proceeded with tibial preparation. I first drilled the femoral holes and removed the femoral component. The tibial tray was then set for proper external rotation as well as mediolateral placement onto the tibia. It was then pinned into place. I then proceeded with punching the keel. I then decided to proceed with cementing of all of our components. The knee was thoroughly irrigated with sterile saline solution via pulse lavage. The lateral geniculate artery was identified and cauterized. All blood was removed from the bone of the tibia, femur and patella with pulse lavage. I then proceeded with cementing. Two packs of antibiotic bone cement were prepared on the back table by the computer engineering technologist. I then proceed with cementing of the tibia first. The cement was impacted into the keel as well as deeply seated into the bone. A second coat of cement was then placed. The tibia was then impacted into place. Excess cement was removed with Bakari's and Joker's. I then proceeded with cementing of the femoral component. The femoral component was also cemented using standard technique. Excess cement was removed. A 10 mm trial insert was then placed into the knee. It was brought into full extension with a constant axial load placed until the cement had hardened. The patellar component was then cemented. This was held firmly with a compressive device until the cement had dried. When the cement had dried, the knee was taken out of extension. All excess cement was removed from around the prosthesis. I then trialed the knee with a 10 mm insert. Flexion and extension gaps were appropriate. The knee was stable. It came into full extension. I decided to go forward with a 10 mm cross-linked cruciate-retaining tibial insert. Polyethylene was then placed onto the tibial tray and locked into place. The knee was then reduced. The knee was again further irrigated with sterile saline solution with antibiotic added. The tourniquet was then deflated. Total tourniquet time for the procedure was 51 minutes at 250 mmHg. Final components were a Olga Persona size 12 cruciate-retaining femoral component, a size H tibial tray, a 10 mm medial-congruent cruciate-retaining polyethylene insert, and a 35 x 8.5 mm patella. I then proceeded with closure. Again the knee was thoroughly irrigated. The quadriceps tendon and the medial retinaculum were reapproximated with #2 Ethibond suture. The extensor mechanism was then closed with a running #2 Quill suture. Subcutaneous tissues were then closed with 2-0 Vicryl interrupted suture. The skin was closed with a running 3-0 Quill suture. Dermabond was was applied to the incision. Sterile compressive dressing was then applied. All sponge and needle counts were deemed correct prior to closure. The patient tolerated the procedure without apparent complication. He was transferred to the recovery room in stable condition. EDGARL / IJN: [id number] /
[2018-07-14] MEDS ORDERED: SENNOSIDES-DOCUSATE SODIUM 1 EACH TAB PO SCH (21:00)
[2018-07-14] MEDS ORDERED: ceFAZolin 3 GM in SODIUM CHLORIDE 0.9% 100 ML IVPB SCH (22:00)
[2018-07-14] MEDS ORDERED: WARFARIN 7.5 MG TAB PO SCH (23:15)
[2018-07-15 00:57] VITALS: PULSE 60
[2018-07-15] MEDS: NICOTINE 14MG/24HR PATCH TRANSDERM SCH ×2 (01:11→09:54)
[2018-07-15] MEDS: LACTATED RINGERS 1,000 ML IV SCH ×2 (05:43→10:05)
--- NOTE | 2018-07-15 06:23 | P.PN ---
Progress Note - Text Progress Note Date: 07/15/18 Postoperative day 1 status post, right total knee arthroplasty, under spinal anesthesia, and intrathecal morphine given for postoperative analgesia, patient doing well, there is no anesthesia related complications, Patient had no headache, vital signs stable , Assessment and plan= postop day 1 , doing well there is no anesthesia related complication.
[2018-07-15 08:13] LABS: Basophils % (A) 0 %; Eosinophils # (A) 0.1 k/uL (0-0.7); Eosinophils % (A) 1 %; HCT 39.7 % (39.0-53.0); HGB 12.9 gm/dL (13.0-17.5); Lymphocytes # (A) 1.3 k/uL (1.0-4.8); Lymphocytes % (A) 14 %; MCH 29.3 pg (25.0-35.0); MCHC 32.6 g/dL (31.0-37.0); MCV 89.8 fL (80.0-100.0); Mean Platelet Volume 8.4; Monocytes % (A) 11 %; Neutrophils # (A) 6.8 k/uL (1.3-7.7); Neutrophils % (A) 73 %; Platelet Count 144 k/uL (150-450); RBC 4.42 m/uL (4.30-5.90); RDW 14.1 % (11.5-15.5); WBC 9.3 k/uL (3.8-10.6)
--- NOTE | 2018-07-15 08:16 | CONS ---
CONSULTATION DATE OF CONSULTATION: 07/14/2018 REASON FOR CONSULTATION: Medical management requested by Dr. Tamayo. CONSULTATION: This is a very pleasant 63-year-old patient of Dr. Reid. Has undergone a right total knee arthroplasty. Chronic stable medical conditions include atrial fibrillation, on anticoagulation, hypertension, osteoarthritis in other joints including the hips, permanent pacemaker. Also got obstructive sleep apnea does not use CPAP machine. Post procedure some pain is present. No nausea or vomiting. No chest pain. Did tolerate his supper. Sitting up on bed. REVIEW OF SYSTEMS: CONSTITUTIONAL: None. HEENT: None. RESPIRATORY: None. CARDIOVASCULAR: None. GASTROINTESTINAL: None. GENITOURINARY: None. MUSCULOSKELETAL: Pain at the operative site and the hips. DERMATOLOGICAL: None. HEMATOLOGICAL: None. LYMPHATIC: None. PSYCHIATRY: None. NEUROLOGICAL: None. PAST MEDICAL HISTORY: Atrial fibrillation, hypertension, osteoarthritis, sleep apnea, does not use CPAP. PAST SURGICAL HISTORY: Appendectomy, bariatric surgery, joint replacement, pacemaker, cardioversion, thumb on the right hand reattached, bilateral foot surgery for heel spurs, left knee replacement, permanent pacemaker in 2014. SOCIAL HISTORY: The patient lives by himself. Used to work with heavy equipment. Alcohol occasionally. Smokes half a pack a day for the last 10 years. FAMILY HISTORY: Atrial fibrillation, cancer, myocardial infarction. HOME MEDICATIONS: 1. Coumadin 10 mg Wednesday and Wednesday. 2. Aldactone 50 mg a day. 3. Men's multivitamin 1 tablet p.o. daily. 4. Toprol XL 200 mg a day. 5. Slow-Mag 64 mg a day. 6. Lisinopril 10 mg a day. 7. Lasix 40 mg a day. 8. Iron 325 p.o. daily. 9. Tylenol Extra Strength 500 mg p.o. daily p.r.n. 10.Coumadin 7.5 mg on Wednesday, Wednesday, Wednesday, , Wednesday. ALLERGIES: Allergies to IODINE, SHELLFISH. PHYSICAL EXAMINATION: On examination, temperature 97.7, pulse 61, respirations 16, blood pressure 127/79, pulse ox 93%. GENERAL APPEARANCE: Well built, BMI 45, sitting up, awake. EYES: Pupils equal. Conjunctivae normal. HENT: External appearance of nose and ears normal. Oral cavity normal. NECK: Short, thick. JVD unable to assess. Mass not palpable. RESPIRATORY: Effort increased. LUNGS: Decreased breath sounds. CARDIOVASCULAR: Heart sounds muffled. No edema. ABDOMEN: Soft, nontender. Liver and spleen not palpable. LYMPHATIC: No lymph node palpable in neck or axillae. PSYCHIATRY: Alert and oriented x3. Mood and affect normal. NEUROLOGICAL: Pupils equal. Cranial nerves grossly intact. Power and sensation grossly intact. MUSCULOSKELETAL: Dressing over the right knee. Evidence of osteoarthritis especially in the hands. INVESTIGATIONS: Blood work from 06/23/2018 shows a white count of 6.2, hemoglobin 15.7, potassium 4.8. BUN and creatinine are normal. ASSESSMENT: 1. Right total knee arthroplasty. 2. Morbid obesity, body mass index greater than 45. 3. Atrial fibrillation chronically on Coumadin. 4. Coumadin monitoring. 5. Essential hypertension. 6. Primary osteoarthritis including the hips and hands. 7. Permanent pacemaker. 8. Obstructive sleep apnea, does not use a CPAP machine. PLAN: Home medications to be resumed including home dose of Coumadin. INR will be followed. Pain control is in place. The patient is advised against smoking. Will be given a nicotine patch. The patient should also see a dietitian for weight loss measures and a family doctor. Thank you Dr. Tamayo. MMODL / IJN: [id number] /
[2018-07-15 08:17] LABS: INR 1.1 (<1.2); Prothrombin Time 10.7 sec (9.0-12.0)
[2018-07-15] MEDS ORDERED: FUROSEMIDE 40 MG TAB PO SCH (09:00)
[2018-07-15] MEDS ORDERED: FERROUS SULFATE 325 MG TAB PO SCH (09:00)
[2018-07-15] MEDS ORDERED: LISINOPRIL 10 MG TAB PO SCH (09:00)
[2018-07-15] MEDS ORDERED: METOPROLOL SUCCINATE (ER) 100 MG TAB.ER.24H PO SCH (09:00)
[2018-07-15] MEDS ORDERED: SPIRONOLACTONE 25 MG TAB PO SCH (09:00)
[2018-07-15] MEDS ORDERED: MAGNESIUM CHLORIDE 64 MG PO SCH (09:00)
[2018-07-15] MEDS ORDERED: NON-FORMULARY DRUG (Multivitamin [Men's Multi-Vitamin] 1 TAB) PO SCH (09:00)
[2018-07-15 09:45] VITALS: RESP 18; TEMP 97.9
--- NOTE | 2018-07-15 10:30 | P.DS ---
Providers Expected date of discharge: 07/15/18 Attending physician: Georgi Tamayo Consults: 07/14/18 16:13 Consult Physician Routine Consulting Provider: Duglas Barajas Consult Reason/Comments: post op medical management Do you want consulting provider notified?: Yes Primary care physician: Pablo Reid - Discharge Diagnosis(es) (1) Osteoarthritis of right knee Patient was admitted to the OR on 07/14/2018 to undergo a right total knee arthroplasty. He had failed conservative measures as an outpatient and desired to proceed with elective surgery after given informed consent. He underwent the above procedure which He tolerated well without complication. Postoperative hospital course has remained without complication. On day of discharge he is afebrile, vital signs stable, labs within acceptable ranges, tolerating by mouth meds and diet, voiding without difficulty, positive flatus, denies abdominal pain or calf pain, pain is controlled on oral pain medication and has no new complaints. Wound is benign, neurovascular status is intact, calf is soft and nontender, abdomen soft and nontender. Review of systems is negative for numbness, tingling, fever, chills, chest pain, shortness breath, nausea, vomiting, dizziness, headaches, slurred speech or other. Current Visit: Yes Status: Acute (2) Osteoarthritis of left knee Current Visit: No Status: Acute Priority: Medium (3) Hypertension Current Visit: Yes Status: Acute (4) Obesity Current Visit: Yes Status: Acute (5) CAD (coronary artery disease) Current Visit: Yes Status: Acute Procedures: Right TKA Patient Condition at Discharge: Good Plan - Discharge Summary Discharge Rx Participant: Yes New Discharge Prescriptions: New Docusate [Colace] 100 mg PO BID #60 capsule HYDROcodone/APAP 10-325MG [[place] 10-325] 1 tab PO Q4HR PRN #42 tab PRN Reason: Pain No Action Warfarin [Coumadin] 7.5 mg PO SUTUWETHSA Warfarin [Coumadin] 10 mg PO MOFR Multivitamin [Men's Multi-Vitamin] 1 tab PO DAILY Lisinopril 10 mg PO QAM Furosemide 40 mg PO QAM Metoprolol Succinate [Toprol XL] 200 mg PO QAM Spironolactone 50 mg PO QAM Magnesium Chloride [Slow-Mag] 64 mg PO QAM Ferrous Sulfate [Feosol] 325 mg PO DAILY Acetaminophen [Tylenol Extra Strength] 500 mg PO DAILY PRN PRN Reason: Pain Discharge Medication List Furosemide 40 mg PO QAM 05/13/15 [History] Lisinopril 10 mg PO QAM 05/13/15 [History] Multivitamin [Men's Multi-Vitamin] 1 tab PO DAILY 05/13/15 [History] Warfarin [Coumadin] 7.5 mg PO SUTUWETHSA 05/13/15 [History] Warfarin [Coumadin] 10 mg PO MOFR 05/13/15 [History] Metoprolol Succinate [Toprol XL] 200 mg PO QAM 12/20/15 [History] Acetaminophen [Tylenol Extra Strength] 500 mg PO DAILY PRN 01/05/18 [History] Ferrous Sulfate [Feosol] 325 mg PO DAILY 01/05/18 [History] Magnesium Chloride [Slow-Mag] 64 mg PO QAM 01/05/18 [History] Spironolactone 50 mg PO QAM 01/05/18 [History] Docusate [Colace] 100 mg PO BID #60 capsule 07/15/18 [Rx] HYDROcodone/APAP 10-325MG [[place] 10-325] 1 tab PO Q4HR PRN #42 tab 07/15/18 [Rx] Follow up Appointment(s)/Referral(s): [facility], [NON-STAFF] - As Needed Patient Instructions/Handouts: Knee Replacement (DC) Activity/Diet/Wound Care/Special Instructions: Keep wound clean and dry Take meds as directed Follow-up with Dr. Tamayo in office Weight bear as tolerated May shower in 3 days if no bleeding Discharge Disposition: HOME WITH HOME HEALTH SERVICES
[2018-07-15 11:02] VITALS: BP 114/75
[2018-07-15] MEDS ORDERED: MULTIVITAMINS, THERA 1 EACH TAB PO SCH (12:00)
--- NOTE | 2018-07-15 15:22 | PN ---
PROGRESS NOTE DATE OF SERVICE: 07/15/2018 PRESENTING COMPLAINT: Right knee surgery. INTERVAL HISTORY: Patient is status post right knee arthroplasty, doing better. Did work with therapy up and about, did tolerate a diet. No dizziness. No lightheadedness. at the bedside. Feeling overall better. Pain is controlled. REVIEW OF SYSTEMS: Done for constitutional, cardiovascular, GI, pulmonary, musculoskeletal; relevant findings as above. CURRENT MEDICATIONS: Reviewed. PHYSICAL EXAMINATION: Temp 97.9, pulse 60, respiration 18, blood pressure 102/66, pulse ox 95% on room air. GENERAL APPEARANCE: Sitting up, comfortable. EYES: Pupils equal, conjunctivae normal. NECK: JVD not raised. Mass not palpable. RESPIRATORY: Effort normal. LUNGS: Decreased breath sounds. CARDIOVASCULAR: Heart sounds muffled, no edema. ABDOMEN: Soft, nontender. Liver and spleen not palpable. PSYCHIATRY: Alert and oriented x3. Mood and affect normal. INVESTIGATIONS: White count 9.3, hemoglobin 12.9. ASSESSMENT: 1. Right total knee arthroplasty. 2. Morbid obesity, body mass index greater than 45. 3. Persistent atrial fibrillation, chronically on Coumadin. 4. Coumadin monitoring. 5. Essential hypertension. 6. Primary osteoarthritis including the hips and hands. 7. Permanent pacemaker. 8. Obstructive sleep apnea, does not use CPAP machine. PLAN: Patient doing well. Patient should get his INR checked by his family doctor. Coumadin is to continue. Care was discussed with the patient and the . MMODL / IJN: [id number] /
[2018-07-15] MEDS ORDERED: WARFARIN 10 MG TAB PO ONE (18:00)
[2018-07-15] MEDS ORDERED: WARFARIN 10 MG TAB PO SCH (23:14)
== END 2018-07-15 14:30 | disposition home health service (06) ==
LOC: OR 11:31 → EDSTATUS 14:35 → 4SSUR 16:10 → OR 07-15 14:30
PROVIDERS: ATTEND Orthopaedic Surgery Sports Medicine
DX: M17.11 Unilateral primary osteoarthritis, right knee (principal); M25.761 Osteophyte, right knee; I48.91 Unspecified atrial fibrillation; I11.9 Hypertensive heart disease without heart failure; E66.9 Obesity, unspecified; Z68.42 Body mass index [BMI] 45.0-49.9, adult; Z95.0 Presence of cardiac pacemaker; F17.210 Nicotine dependence, cigarettes, uncomplicated; Z79.01 Long term (current) use of anticoagulants; Z79.899 Other long term (current) drug therapy; Z91.013 Allergy to seafood; Z91.048 Other nonmedicinal substance allergy status
CPT/HCPCS: 94760; 97161; 84132; 85025; 85610 ×2; 85730; 88300; 73560; 27447; C1776; C1713; J0171; J1100; J0690 ×3; J2405; J2274; J3010; J1885; J2795; J0735

== ENCOUNTER → 2019-07-31 | Outpatient (CLI) | payer OTHER ==
[2019-07-31 20:50] LABS: African American GFR (CKD) 91.8 (60.0-200.0); Anion Gap 8.3 mmol/L (4.00-12.00); Carbon Dioxide 28.7 mmol/L (21.6-31.8); Potassium 5.2 mmol/L (3.5-5.5)
== END ==
LOC: LABWHC1 14:06
PROVIDERS: ATTEND Internal Medicine Cardiovascular Disease
DX: I50.22 Chronic systolic (congestive) heart failure (principal)
CPT/HCPCS: 36415; 80051; 82565; 84520